=== PATIENT | female | born 1940 | race Caucasian/White ===

== ENCOUNTER 2016-08-14 11:00 | Inpatient (IN) | payer MEDICARE, MEDICAID ==
[2016-08-14] VITALS: BP 104/52
[~2016-08-14] VITALS: Ht 165.1 cm; Wt 73.0 kg
--- NOTE | 2016-08-14 11:06 | NUR ---
bibra from home due to sp fall, no ko,. ambulatory upon arrival. Patient with laceration on forhead with minimal bleeding. Complaint of 4/10 pain,. patient remains aao3, no apparent distress noted. Vss. will monitor
[2016-08-14] MEDS ORDERED: TDAP [DIPH/PERTUSSIS/TET] 0.5 ML VIAL IM ONE ×2 (11:10→11:30)
[2016-08-14] MEDS ORDERED: LIDOCAINE 0.5%-EPI 1:200,000 50 ML VIAL ONE (11:18)
[2016-08-14 11:27] LABS: BASOPHILS % (AUTO) 0.7 % (0.0-2.0); EOSINOPHILS # (AUTO) 0.3 /CMM (0.0-0.7); EOSINOPHILS % (AUTO) 4.5 % (0.0-6.0); HEMATOCRIT 33 % (33-45); HEMOGLOBIN 11.1 g/dL (11.5-14.8); LYMPHOCYTES # (AUTO) 2.1 /CMM (0.8-4.8); LYMPHOCYTES % (AUTO) 29.6 % (20.0-44.0); MEAN CORPUSCULAR HEMOGLOBIN 30 PG (26.0-33.0); MEAN CORPUSCULAR HGB CONC 34 g/dl (31.0-36.0); MEAN CORPUSCULAR VOLUME 87 fL (82-100); MONOCYTES # (AUTO) 0.6 /CMM (0.1-1.30); MONOCYTES % (AUTO) 8.7 % (2.0-12.0); NEUTROPHILS # (AUTO) 3.9 /CMM (1.8-8.9); NEUTROPHILS % (AUTO) 56.5 % (43.0-81.0); PLATELET COUNT (AUTO) 270 /CMM (150-450); RDW COEFFICIENT OF VARIATION 12.8 (11.5-15.0); RED BLOOD CELL COUNT(AUTO) 3.73 MIL/uL (4.0-5.2); WHITE BLOOD COUNT (AUTO) 6.9 K/uL (4.3-11.0)
[2016-08-14] MEDS ORDERED: LIDOCAINE 2%-EPI 1:100,000 30 ML VIAL TP ONE (11:30)
[2016-08-14] MEDS ORDERED: BACI/NEOM/POLY B OINT PKT 1 UDPKT PACKET TP ONE (11:30)
[2016-08-14 11:40] LABS: INR 0.94 (0.87-1.13); PROTHROMBIN TIME 9.9 SECS (9.5-12.7)
[2016-08-14 11:42] LABS: ALANINE AMINOTRANSFERASE 20 U/L (12-78); ALBUMIN 3.9 g/dL (3.4-5.0); ALKALINE PHOSPHATASE 46 U/L (46-116); ASPARTATE AMINOTRANSFERASE 17 U/L (15-37); BILIRUBIN,DIRECT 0.1 mg/dL (0.0-0.2); BILIRUBIN,TOTAL 0.7 mg/dL (0.2-1.0); CALCIUM, SERUM 8.8 mg/dL (8.5-10.1); CARBON DIOXIDE 29 mmol/L (21-32); CHLORIDE 102 mmol/L (98-107); CREATININE 1.1 mg/dL (0.6-1.3); GLUCOSE 85 mg/dL (74-106); POTASSIUM 4.6 mmol/L (3.5-5.1); SODIUM SERUM 137 mmol/L (136-145); TOTAL PROTEIN, SERUM 7.3 g/dL (6.4-8.2)
[2016-08-14 11:44] LABS: TROPONIN I < 0.017 ng/mL (0.00-0.056)
[2016-08-14 11:54] LABS: UREA NITROGEN, BLOOD 15 mg/dL (7-18)
--- NOTE | 2016-08-14 12:08 | NUR ---
PAGED INSPECTOR PLATING PANEL.
--- NOTE | 2016-08-14 12:41 | NUR ---
REPAGED WELL SERVICE FLOOR WORKER PANEL.
--- NOTE | 2016-08-14 12:41 | NUR ---
PATIENT ASSIGNED TO TELE 314-1
[2016-08-14] MEDS ORDERED: METO50TA7 PO (12:47)
[2016-08-14] MEDS ORDERED: SITA1TAB6 PO (12:47)
[2016-08-14] MEDS ORDERED: ESCI10TA PO (12:47)
[2016-08-14] MEDS ORDERED: LORA0.5T PO (12:47)
[2016-08-14] MEDS ORDERED: OLME40TA3 PO ×2 (12:47→14:14)
[2016-08-14] MEDS ORDERED: MULT1TAB73 PO (12:47)
[2016-08-14] MEDS ORDERED: CALC500T71 PO (12:47)
[2016-08-14] MEDS ORDERED: OMEG1CAP55 PO (12:47)
[2016-08-14] MEDS ORDERED: ASPI81TA2 PO (12:47)
[2016-08-14] MEDS ORDERED: OMEP20TA20 PO (12:47)
--- NOTE | 2016-08-14 13:18 | NUR ---
PT TRANSPORTED TO
[2016-08-14 14:00] VITALS: BP 159/84
--- NOTE | 2016-08-14 15:16 | NUR ---
ADMITTING NOTES RECEIVED REPORT FROM ED REGISTERED NURSE. PATIENT IS ALERT AND ORIENTED X3. DAUGHTER IS AT BED SIDE. POLISH SPEAKER. ADMITTING DOCUMENTATION ARE IN THE CHART (PERSONAL BELONGING AND CODE STATUS). DR THURSTON NOTIFIED FOR ORDERS. SKIN ASSESSMENT COMPLETED. PICTURES WERE TAKEN AND PLACED IN THE CHART. BED IN LOW POSITION, LOCKED. 2 SIDE RAILS ARE UP. IV SITE IS INTACT AND POTENT. WILL CONTINUE TO ASSESS AND MONITOR PATIENT THROUGH OUT MY SHIFT
[2016-08-14 16:00] VITALS: BP 135/69
[2016-08-14] MEDS ORDERED: ONDANSETRON HCL/PF 4 MG/2 ML VIAL IVP PRN (17:00)
[2016-08-14] MEDS: METFORMIN 500 MG TABLET PO SCH (17:34)
[2016-08-14] MEDS: SITAGLIPTIN PHOSPHATE 50 MG TABLET PO SCH (17:34)
[2016-08-14] MEDS: IV NS 0.9% 1,000 ML IV PRN (17:36)
--- NOTE | 2016-08-14 18:25 | NUR ---
RN NOTES ORTHO ORTHOSTATIC HYPOTENSION COMPLETED PER DR CARABALLO REQUEST LAYIN/66 SITTIN/76 STANDIN/[address] CARABALLO. NO NEW ORDERS
--- NOTE | 2016-08-14 18:53 | NUR ---
RN CLOSING NOTES PATIENT IS A NEW ADMIT. PATIENT IS IN BED. ALERT AND ORIENTED X3. 2/10 PAIN AROUND THE LOWER RIBS, REFUSE PAIN MEDS. NO SIGN AND SYMPTOMS OF DISTRESS. IV SITE IN INTACT AND POTENT. NS IS CURRENTLY RUNNING AT 75 ML/HR. BED IS IN LOWER POSITION, LOCKED, 2 SIDE RAILS ARE UP. WILL ENDORSE TO PRODUCT TECHNICIAN NURSE
[2016-08-14 19:02] LABS: PHOSPHORUS 3.9 mg/dL (2.5-4.9)
[2016-08-14 19:09] LABS: MAGNESIUM 1.2 mg/dL (1.8-2.4)
--- NOTE | 2016-08-14 19:11 | NUR ---
RN NOTE CRITICAL VALUE 0708 LAB CALLED TO REPORT CRITICAL VALUE. CRITICAL VALUE INTERVENTION COMPLETED. DR KARENA DUGGAN. WILL ENDORSE TO CORPORATION SECRETARY NURSE Addendum: 08/14/16 at 1920 by TAVIA MANNING RN DR ELEAZAR THURSTON REPLIED. NEW ORDERS RECEIVED AND CARRY OUT. 4 GRAMS MAGNESIUM REPLACEMENT. WILL ENDORSE TO THE CORPORATION SECRETARY NURSE
[2016-08-14 19:18] LABS: THYROID STIMULATING HORMONE 1.222 uIU/mL (0.358-3.74)
[2016-08-14] MEDS ORDERED: Magnesium 1GM/D5W 100ML PREMIX PIGGYBACK IV ONE (19:30)
[2016-08-14] MEDS: ACETAMINOPHEN 325 MG TABLET PO PRN (19:37)
--- NOTE | 2016-08-14 19:47 | NUR ---
RAIL CAR WELDER NOTES RECEIVED PT IN BED, AWAKE, ALERT AND VERBALLY RESPONSIVE TO STIMULI. COMPLAINT OF MILD BODY PAIN. TYLENOL 650 MG GIVEN ORDERED. ON ROOM AIR. NO ACUTE RESP. DISTRESS NOTED. ON TELE MONITOR. AMBULATORY. FOREHEAD STITCHES NOTED. NO ACTIVE BLEEDING NOTED. WILL CONTINUE TO MONITOR.
[2016-08-14 20:00] VITALS: BP 135/68
[2016-08-14] MEDS ORDERED: SECONDARY IV SET 1 EA INFUS.SET MC ONE (20:16)
[2016-08-14] MEDS: Magnesium 1GM/D5W 100ML PREMIX 100 ML IV SCH ×3 (20:28→23:08)
[2016-08-15] VITALS (7 sets, daily range): BP systolic 100–135; BP diastolic 52–70
--- NOTE | 2016-08-15 | NUR ---
FREIGHT TALLIER NOTES PT STATED SHE TAKES ATIVAN AT NIGHT TIME NEEDED FOR INSOMNIA. ATIVAN WAS ORDERED DAILY AT 9A. DR. GOMEZ MADE AWARE AND OKAYED TO CHANGE ATIVAN SCHEDULE FROM 9AM DAILY TO QHS PRN. NOTED AND CARRIED OUT
[2016-08-15] MEDS ORDERED: LORAZEPAM 0.5 MG TABLET ONE (00:02)
[2016-08-15] MEDS: LORAZEPAM 0.5 MG TABLET PO PRN ×2 (00:07→22:33)
[2016-08-15] MEDS: Magnesium 1GM/D5W 100ML PREMIX 100 ML IV SCH (01:03)
[2016-08-15] MEDS: ACETAMINOPHEN 325 MG TABLET PO PRN ×3 (02:07→22:33)
--- NOTE | 2016-08-15 02:07 | NUR ---
ELECTRIC ARC FURNACE OPERATOR NOTES PT COMPLAINTS OF MILD BODY ACHE. TYLENOL GIVEN ORDERED.
[2016-08-15 06:47] LABS: BASOPHILS # (AUTO) 0.1 /CMM (0.0-0.2); BASOPHILS % (AUTO) 0.6 % (0.0-2.0); EOSINOPHILS # (AUTO) 0.3 /CMM (0.0-0.7); EOSINOPHILS % (AUTO) 3.3 % (0.0-6.0); HEMATOCRIT 30 % (33-45); LYMPHOCYTES # (AUTO) 1.8 /CMM (0.8-4.8); LYMPHOCYTES % (AUTO) 20.6 % (20.0-44.0); MEAN CORPUSCULAR HEMOGLOBIN 29 PG (26.0-33.0); MEAN CORPUSCULAR HGB CONC 33 g/dl (31.0-36.0); MEAN CORPUSCULAR VOLUME 88 fL (82-100); MONOCYTES # (AUTO) 0.8 /CMM (0.1-1.30); MONOCYTES % (AUTO) 8.9 % (2.0-12.0); NEUTROPHILS # (AUTO) 5.9 /CMM (1.8-8.9); NEUTROPHILS % (AUTO) 66.6 % (43.0-81.0); PLATELET COUNT (AUTO) 256 /CMM (150-450); RDW COEFFICIENT OF VARIATION 13.7 (11.5-15.0); RED BLOOD CELL COUNT(AUTO) 3.42 MIL/uL (4.0-5.2); WHITE BLOOD COUNT (AUTO) 8.9 K/uL (4.3-11.0)
--- NOTE | 2016-08-15 06:53 | NUR ---
ALMOND ROASTER NOTES NO SIGNIFICANT CHANGES NOTED. SR = 65 ON MONITOR.
[2016-08-15 07:02] LABS: ALBUMIN 3.4 g/dL (3.4-5.0); BILIRUBIN,TOTAL 0.6 mg/dL (0.2-1.0); CALCIUM, SERUM 8.8 mg/dL (8.5-10.1); CREATININE 1.2 mg/dL (0.6-1.3); MAGNESIUM 2.3 mg/dL (1.8-2.4); PHOSPHORUS 3.9 mg/dL (2.5-4.9); POTASSIUM 4.4 mmol/L (3.5-5.1); TOTAL PROTEIN, SERUM 6.7 g/dL (6.4-8.2)
[2016-08-15 07:21] LABS: THYROID STIMULATING HORMONE 1.72 uIU/mL (0.358-3.74)
--- NOTE | 2016-08-15 07:56 | NUR ---
AM RN NOTES RECEIVED PT IN STABLE CONDITION, NO PAIN OR DISCOMFORT NOTED, NO BLEEDING FROM FOREHEAD, NO NAUSEA OR VOMITING, NO DIZZINESS, AMBULATED TO RESTROOM, WILL MONITOR.
[2016-08-15] MEDS: LOSARTAN POTASSIUM 25 MG TABLET PO SCH (08:15)
[2016-08-15] MEDS: CALCIUM CARBONATE (1250) 500 MG TABLET PO SCH (08:15)
[2016-08-15] MEDS: METOPROLOL SUCCINATE 50 MG TAB.SR.24H PO SCH (08:16)
[2016-08-15] MEDS: ASPIRIN 81 MG TAB.CHEW PO SCH (08:16)
[2016-08-15] MEDS: ESCITALOPRAM OXALATE (10 MG) 10 MG TABLET PO SCH (08:16)
[2016-08-15] MEDS: SITAGLIPTIN PHOSPHATE 50 MG TABLET PO SCH ×2 (08:16→16:30)
[2016-08-15] MEDS: METFORMIN 500 MG TABLET PO SCH ×2 (08:16→16:29)
[2016-08-15] MEDS ORDERED: LORAZEPAM 0.5 MG TABLET PO SCH (09:00)
[2016-08-15] MEDS ORDERED: IV NS 0.9% 1,000 ML IV ONE ×2 (10:30→14:30)
[2016-08-15] MEDS ORDERED: IV SET PRIMARY PUMP SET 1 EA INFUS.SET MC ONE (10:39)
--- NOTE | 2016-08-15 10:48 | NUR ---
PT STARTED ON IVF NS 250ML/HR PER DR. SCHNEIDER, DUE TO ABNORMAL ORTHOSTATIC BP, WILL MONITOR
--- NOTE | 2016-08-15 18:02 | NUR ---
pt in stable condition, orthostatic BP improved, pt ambulated without difficulty, no headache or dizziness noted, consumed her dinner, visited by family, will indorse to next shift for cristiane.
--- NOTE | 2016-08-15 19:35 | NUR ---
MS/RN RECEIVE PATIENT AWAKE, ALERT, ORIENTED, COMFORTABLE, NO C/O DIZZINESS, NO C/O PAIN, NO DISTRESS NOTED. NO NEEDS IDENTIFIED AT THIS TIME. WILL MONITOR
--- NOTE | 2016-08-15 22:34 | NUR ---
MS/RN C/O BODY PAIN AND UNABLE TO SLEEP. PER PATIENT SHE TAKES ATIVAN TO MAKE HER SLEEP. PATIENT REQUESTED TYLENOL AND ATIVAN. MEDS WERE GIVEN PER PATIENT REQUEST. WILL CONTINUE TO MONITOR.
--- NOTE | 2016-08-15 23:30 | NUR ---
MS/RN PATIENT IS SLEEPING AT THIS TIME, AROUSABLE, APPEAR COMFORTABLE, NO SIGNS OF DISTRESS NOTED, CALL LIGHT IN REACH. WILL CONTINUE TO MONITOR.
[2016-08-16 06:32] LABS: BASOPHILS % (AUTO) 0.5 % (0.0-2.0); EOSINOPHILS # (AUTO) 0.2 /CMM (0.0-0.7); EOSINOPHILS % (AUTO) 3.3 % (0.0-6.0); HEMATOCRIT 30 % (33-45); HEMOGLOBIN 9.9 g/dL (11.5-14.8); LYMPHOCYTES % (AUTO) 26.8 % (20.0-44.0); MEAN CORPUSCULAR HEMOGLOBIN 29 PG (26.0-33.0); MEAN CORPUSCULAR HGB CONC 33 g/dl (31.0-36.0); MEAN CORPUSCULAR VOLUME 88 fL (82-100); MONOCYTES # (AUTO) 0.8 /CMM (0.1-1.30); NEUTROPHILS # (AUTO) 4.5 /CMM (1.8-8.9); NEUTROPHILS % (AUTO) 59.4 % (43.0-81.0); PLATELET COUNT (AUTO) 228 /CMM (150-450); RDW COEFFICIENT OF VARIATION 13.5 (11.5-15.0); RED BLOOD CELL COUNT(AUTO) 3.41 MIL/uL (4.0-5.2); WHITE BLOOD COUNT (AUTO) 7.6 K/uL (4.3-11.0)
[2016-08-16 06:39] LABS: CALCIUM, SERUM 8.6 mg/dL (8.5-10.1); CREATININE 1.1 mg/dL (0.6-1.3); MAGNESIUM 1.4 mg/dL (1.8-2.4); PHOSPHORUS 4.5 mg/dL (2.5-4.9); POTASSIUM 4.2 mmol/L (3.5-5.1)
--- NOTE | 2016-08-16 06:52 | NUR ---
MS/RN PATIENT IS SLEEPING AT THIS TIME, AROUSABLE, NO DISTRESS NOTED, ALL NEEDS ATTENDED AT THIS TIME. WILL CONTINUE TO MONITOR.
--- NOTE | 2016-08-16 07:05 | NUR ---
MS RN INITIAL NOTES PATIENT IN BED, SLEEPING, AROUSES EASILY. PATIENT IS A/O X3. BREATHING EVEN AND NON LABORED, ON ROOM AIR, NO SOB NOTED. IV IN LEFT AC G20 PATENT AND INTACT, IVF NS NOT INFUSING AT THIS TIME, PER PATIENTS REQUEST DUE TO FREQUENT GOING TO THE BATHROOM TO URINATE. NO C/O PAIN AT THIS TIME. CALL LIGHT WITHIN REACH, BED LOW AND LOCKED, SIDE RAILS UP X2. WILL CONT TO MONITOR.
[2016-08-16 08:00] VITALS: BP 129/66
[2016-08-16] MEDS: METOPROLOL SUCCINATE 50 MG TAB.SR.24H PO SCH (08:33)
[2016-08-16] MEDS: SITAGLIPTIN PHOSPHATE 50 MG TABLET PO SCH (08:33)
[2016-08-16 08:34] VITALS: BP 129/66
[2016-08-16] MEDS: CALCIUM CARBONATE (1250) 500 MG TABLET PO SCH (08:34)
[2016-08-16] MEDS: ASPIRIN 81 MG TAB.CHEW PO SCH (08:34)
[2016-08-16] MEDS: LOSARTAN POTASSIUM 25 MG TABLET PO SCH (08:34)
[2016-08-16] MEDS: ESCITALOPRAM OXALATE (10 MG) 10 MG TABLET PO SCH (08:34)
[2016-08-16] MEDS: METFORMIN 500 MG TABLET PO SCH (08:34)
[2016-08-16] MEDS: IV NS 0.9% 1,000 ML IV PRN (10:02)
--- NOTE | 2016-08-16 10:05 | NUR ---
PATIENT AGREED TO INFUSE IVF. HANG NEW BAG OF NS 1 LITER.
--- NOTE | 2016-08-16 12:13 | NUR ---
PATIENT IS SEEN BY DR. ELEAZAR THURSTON TODAY. POSSIBLE DC HOME TODAY, PATIENT IS AWARE. LOW MAGNESIUM LEVEL 1.4 INFORMED MD, WILL REPLACE.
[2016-08-16] MEDS ORDERED: MAGNESIUM OXIDE 400 MG TABLET PO ONE (12:30)
--- NOTE | 2016-08-16 13:11 | NUR ---
PATIENT TO BE DISCHARGED HOME ORDERED. INFORMED PATIENT.
[2016-08-16] MEDS ORDERED: LOSA50TA3 PO (13:12)
--- NOTE | 2016-08-16 15:21 | NUR ---
MS RN DISCHARGED PATIENT HAS BEEN CLEARED BY MD. V/S REMAINS STABLE, NO EPISODE OF SYNCOPE. SKIN INTACT. PATIENT IS AMBULATORY, NO C/O PAIN OR ANY DISCOMFORT. DISCHARGE INSTRUCTION GIVEN TO THE PATIENT/BURAK-SON, VERBALIZED UNDERSTANDING. INSTRUCTED PATIENT TO FOLLOW UP WITH HER PRIMARY MD IN 1 WEEK, STATED OK. PRESCRIPTION HANDED TO THE PATIENT. BELONGINGS CHECKED AND SEND WITH THE PATIENT UPON DISCHARGE. PATIENT LEFT HOSP IN STABLE CONDITION VIA PRIVATE CAR, ACCOMPANIED BY SON-BURAK.
== END 2016-08-16 15:20 | disposition home or self-care (01) | DRG 74 ==
LOC: ER 11:04 → TELE 13:22 → MED 08-15 10:57
PROVIDERS: ADMIT Nurse Practitioner Acute Care; ATTEND Nurse Practitioner Acute Care
PROC: 0HQ1XZZ Repair Face Skin, External Approach (ICD-10-PCS; principal; 2016-08-14)
DX: G90.8 Other disorders of autonomic nervous system (principal); E11.9 Type 2 diabetes mellitus without complications; I10 Essential (primary) hypertension; F32.9 Major depressive disorder, single episode, unspecified; E83.42 Hypomagnesemia; S01.91XA Laceration without foreign body of unspecified part of head, initial encounter; W19.XXXA Unspecified fall, initial encounter; Y92.9 Unspecified place or not applicable
CPT/HCPCS: 36415; 70450-TC; 71010-TC; 80048-TC; 80053-TC; 80061-TC; 80076-TC; 82306; 82728-TC; 83540-TC; 83735-TC; 84100-TC; 84439-TC; 84443-TC; 84484-TC; 85025-TC; 85730-TC; 87081-TC; 90715; 93307-TC; 93880-TC; 97003-TC; A4606; A6402; J3475; J3490; J7030; Z7610

== ENCOUNTER 2016-08-22 11:35 | Emergency (ER) | payer MEDICARE, MEDICAID ==
[~2016-08-22] VITALS: Ht 165.1 cm; Wt 68.0 kg
[~2016-08-22 11:35] MED LIST: ASPI81TA2 PO; CALC500T71 PO; ESCI10TA PO; LORA0.5T PO; LOSA50TA3 PO; METO50TA7 PO; MULT1TAB73 PO; OMEG1CAP55 PO; OMEP20TA20 PO; SITA1TAB6 PO
[2016-08-22 11:46] VITALS: BP 133/77
== END 2016-08-22 12:51 | disposition home or self-care (01) ==
LOC: ER 11:37
DX: S01.81XD Laceration without foreign body of other part of head, subsequent encounter (principal); Z91.041 Radiographic dye allergy status
CPT/HCPCS: 99282; A4606; Z7610